=== PATIENT | female | born 2000 | race Two or more races ===

== ENCOUNTER 2020-06-06 15:34 | Observation (INO) | payer MEDICAID ==
[~2020-06-06] VITALS: Ht 144.8 cm; Wt 73.5 kg
[2020-06-06] MEDS ORDERED: CHOL40002 MT (16:20)
[2020-06-06] MEDS ORDERED: OMEG-118 MT (16:20)
[2020-06-06] MEDS ORDERED: FERR325T6 MT (16:20)
[2020-06-06] MEDS ORDERED: PREN1TAB78 MT (16:20)
== END 2020-06-06 17:15 | disposition home or self-care (01) ==
LOC: 8 EST LDRP 15:34
PROVIDERS: ADMIT Obstetrics & Gynecology; ATTEND Obstetrics & Gynecology
DX: O36.8130 Decreased fetal movements, third trimester, not applicable or unspecified (principal); Z3A.37 37 weeks gestation of pregnancy
CPT/HCPCS: 59025; 76815; 76818; G0378; 99281

== ENCOUNTER 2020-06-13 16:05 | Inpatient (IN) | payer MEDICAID ==
[~2020-06-13] VITALS: Ht 144.8 cm; Wt 72.6 kg
[~2020-06-13 16:05] MED LIST: CHOL40002 MT; FERR325T6 MT; OMEG-118 MT; PREN1TAB78 MT
[2020-06-13 18:13] LABS: BASOPHILS % 0.5 % (0.0-2.0); EOSINOPHILS % 0.2 % (0.0-5.0); HEMATOCRIT. 24.7 % (36.0-48.0); HEMOGLOBIN. 7.4 g/dL (12.0-16.0); LYMPHOCYTES % 20.9 % (20.0-50.0); MEAN CORPUSCULAR HEMOGLOBIN 16.6 pg (28.0-32.0); MEAN CORPUSCULAR VOLUME 55.4 fL (81.0-99.0); MEAN PLATELET VOLUME 8.8 fl (7.4-10.4); MONOCYTES % 5.1 % (2.0-8.0); NEUTROPHILS % 73.3 % (40.0-76.0); PLATELET 292 x1000/uL (130-400); RED BLOOD CELL COUNT 4.45 mill/uL (4.2-5.4); RED CELL DISTRIBUTION WIDTH 20.4 % (11.6-14.6)
[2020-06-13 18:17] LABS: CLARITY URINE CLEAR (CLEAR); COLOR URINE YELLOW (YELLOW); KETONES URINE NEGATIVE (NEGATIVE); LEUKOCYTE ESTERASE URINE 1+ (NEGATIVE); NITRITE URINE NEGATIVE (NEGATIVE); OCCULT BLOOD URINE NEGATIVE (NEGATIVE); PROTEIN URINE TRACE (NEGATIVE); SPECIFIC GRAVITY URINE 1.028 (1.005-1.030)
[2020-06-13 18:23] LABS: CHLORIDE 109 mEq/L (98-107)
[2020-06-13 18:39] LABS: D-DIMER 1.61 mg/L FEU (<0.50); INR 0.9; PARTIAL THROMBOPLASTIN TIME 24.3 sec (23.4-31.0); PROTHROMBIN TIME 9.8 sec (9.6-11.0)
[2020-06-13 19:02] LABS: PLATELET ESTIMATE NORMAL
[2020-06-13] MEDS ORDERED: NALOXONE HCL 0.4 MG/ML 1ML VIAL IM PRN (21:30)
[2020-06-13] MEDS ORDERED: DEXT 5%/LR + PITOCIN 20UNITS/L 1,000 ML IV SCH (21:30)
[2020-06-13] MEDS ORDERED: METHYLERGONOVINE MALEATE 0.2 MG/ML IM PRN (21:30)
[2020-06-13] MEDS ORDERED: CARBOPROST TROMETHAMINE 250 MCG/ML AMPUL IM PRN (21:30)
[2020-06-13 22:17] LABS: HEPATITIS B SURFACE ANTIGEN NEGATIVE
[2020-06-14] MEDS: LACTATED RINGERS 1,000 ML IV SCH ×2 (03:53→09:01)
[2020-06-14] MEDS ORDERED: CITRIC ACID/SODIUM CITRATE SOLN 30ML UDC PO NR (07:30)
[2020-06-14] MEDS ORDERED: CEFAZOLIN SODIUM 1000MG/VIAL ONE (07:41)
[2020-06-14] MEDS ORDERED: MORPHINE SULFATE/PF 1MG/ML 10ML AMP ONE (07:41)
[2020-06-14] MEDS ORDERED: OXYTOCIN 10 UNITS/ML 1ML ONE (07:41)
[2020-06-14] MEDS ORDERED: ONDANSETRON HCL 4MG/2ML INJ ONE (07:41)
[2020-06-14] MEDS ORDERED: FENTANYL CITRATE/PF 50MCG/ML 2ML VIAL ONE (07:41)
[2020-06-14] MEDS ORDERED: EPHEDRINE SULFATE 50MG/ML VIAL ONE (07:41)
[2020-06-14] MEDS ORDERED: SODIUM CHLORIDE 0.9% 10ML VIAL ONE (11:51)
[2020-06-14] MEDS ORDERED: PHENYLEPHRINE HCL 10 MG/ML 1ML (IV VIAL) IV ONE (11:51)
[2020-06-14] MEDS ORDERED: KETOROLAC 60MG/2ML VIAL IM ONE (12:41)
[2020-06-14] MEDS ORDERED: DIPHENHYDRAMINE 50MG/ML VIAL ONE (12:41)
[2020-06-14] MEDS ORDERED: DIPHENHYDRAMINE 50MG/ML VIAL IV PRN (13:15)
[2020-06-14] MEDS ORDERED: NALOXONE HCL 0.4 MG/ML 1ML VIAL IV PRN (13:15)
[2020-06-14] MEDS ORDERED: KETOROLAC 30MG/ML VIAL IV SCH (13:15)
[2020-06-14] MEDS ORDERED: BUTORPHANOL TARTRATE 2 MG/ML VIAL IV PRN (13:15)
[2020-06-14] MEDS ORDERED: BISACODYL 10MG SUPP PR PRN (13:45)
[2020-06-14] MEDS ORDERED: HYDROCODONE/ACETAMINOPHEN 5/325MG TABLET PO PRN (13:45)
[2020-06-14] MEDS ORDERED: HEMORRHOIDAL SUPP PR PRN (13:45)
[2020-06-14] MEDS ORDERED: IBUPROFEN 400MG TABLET PO PRN (13:45)
[2020-06-14] MEDS ORDERED: LANOLIN OINT 7GM TUBE TOP PRN (13:45)
[2020-06-14] MEDS ORDERED: ONDANSETRON HCL 4MG/2ML INJ IV PRN (13:45)
[2020-06-14] MEDS ORDERED: DEXT 5%/LR + PITOCIN 20UNITS/L 1,000 ML IV SCH (14:00)
[2020-06-14 16:00] VITALS: BP 113/57
[2020-06-14 17:00] VITALS: BP 112/65
[2020-06-14 19:05] VITALS: BP 110/74
[2020-06-14] MEDS: MAGNESIUM/ALUMINUM HYDROXIDE/SIMETHICONE 30ML UDC PO SCH (21:00)
[2020-06-14] MEDS ORDERED: DIPHENHYDRAMINE 25MG CAPSULE PO PRN (21:00)
[2020-06-14] MEDS: DOCUSATE SODIUM 100MG CAPSULE PO SCH (21:00)
[2020-06-14 22:30] VITALS: BP 122/69
[2020-06-15 04:00] VITALS: BP 118/67
[2020-06-15 06:54] LABS: BASOPHILS % 0.4 % (0.0-2.0); EOSINOPHILS % 0.4 % (0.0-5.0); HEMATOCRIT. 21.1 % (36.0-48.0); LYMPHOCYTES % 18.1 % (20.0-50.0); MEAN CORPUSCULAR HEMOGLOBIN 16.9 pg (28.0-32.0); MEAN CORPUSCULAR VOLUME 55.2 fL (81.0-99.0); MEAN PLATELET VOLUME 8.8 fl (7.4-10.4); MONOCYTES % 6.2 % (2.0-8.0); NEUTROPHILS % 74.9 % (40.0-76.0); PLATELET 247 x1000/uL (130-400); RED BLOOD CELL COUNT 3.82 mill/uL (4.2-5.4); RED CELL DISTRIBUTION WIDTH 20.7 % (11.6-14.6)
[2020-06-15 08:00] VITALS: BP 127/77
[2020-06-15 08:34] LABS: HEMOGLOBIN. 6.4 g/dL (12.0-16.0)
[2020-06-15] MEDS: MAGNESIUM/ALUMINUM HYDROXIDE/SIMETHICONE 30ML UDC PO SCH ×2 (09:00→21:20)
[2020-06-15 16:05] VITALS: BP 136/73
[2020-06-15] MEDS: FERROUS SULFATE 325MG TABLET PO SCH (17:57)
[2020-06-15] MEDS: PRENATAL VIT/FE FUMARATE/FA TABLET PO SCH (17:57)
[2020-06-15] MEDS: IBUPROFEN 800MG TABLET PO PRN (17:57)
[2020-06-15 20:15] VITALS: BP 127/79
[2020-06-15] MEDS: DOCUSATE SODIUM 100MG CAPSULE PO SCH (21:20)
[2020-06-16 04:30] VITALS: BP 113/62
[2020-06-16] MEDS: IBUPROFEN 800MG TABLET PO PRN (06:42)
[2020-06-16 08:00] VITALS: BP 130/83
[2020-06-16] MEDS: MAGNESIUM/ALUMINUM HYDROXIDE/SIMETHICONE 30ML UDC PO SCH (09:23)
[2020-06-16] MEDS: PRENATAL VIT/FE FUMARATE/FA TABLET PO SCH (09:23)
[2020-06-16] MEDS: FERROUS SULFATE 325MG TABLET PO SCH (09:23)
== END 2020-06-16 15:00 | disposition home or self-care (01) | DRG 540 ==
LOC: 8 EST LDRP 16:05 → INTOOBSV 16:05 → OBSVTOIN 16:05 → 8 EST A/PP 06-14 15:30
PROVIDERS: ADMIT Obstetrics & Gynecology; ATTEND Obstetrics & Gynecology
PROC: 10D00Z1 Extraction of Products of Conception, Low, Open Approach (ICD-10-PCS; principal; 2020-06-14)
DX: O34.211 Maternal care for low transverse scar from previous cesarean delivery (principal); O99.02 Anemia complicating childbirth; D64.9 Anemia, unspecified; Z20.828 Contact with and (suspected) exposure to other viral communicable diseases; Z37.0 Single live birth; Z3A.39 39 weeks gestation of pregnancy
CPT/HCPCS: 36415; 80053; 81003; 84550; 85025; 85379; 85384; 86592; 86703; 86762; 86850; 86900; 86920; 87340; 87426; 88307; 99281; J0690; J1200; J1885; J2274; J2370; J2405; J2590; J3010; J3490; J7120